=== PATIENT | male | born 1980 | race Caucasian/White ===

== ENCOUNTER 2017-12-14 09:37 | Emergency (ER) | payer OTHER ==
[2017-12-14] MEDS ORDERED: HYOSCYAMINE SULFATE 0.125 MG TAB PO ONE (09:49)
[2017-12-14] MEDS ORDERED: MAG HYDROX/AL HYDROX/SIMETH 30 ML UDCUP PO ONE (09:49)
[2017-12-14] MEDS ORDERED: LIDOCAINE 2% VISCOUS 15 ML UDCUP PO ONE (09:49)
[2017-12-14 09:53] VITALS: BP 132/80; PULSE 95; RESP 18; TEMP 98.4; O2SAT 94
--- NOTE | 2017-12-14 09:54 | EDPHY ---
H & P Time Seen by Provider: 12/14/17 09:44 HPI/ROS: CHIEF COMPLAINT: "I feel like there is a fish bone in my esophagus " HISTORY OF PRESENT ILLNESS: 37-year-old male with prior history of esophageal constriction, complaining of a sensation of a fishbone stuck in his the esophagus for the past 3 days after eating salmon. Reproducible pain with swallowing. No vomiting. No melena or hematochezia. No dyspnea. REVIEW OF SYSTEMS: A ten point review of systems was performed and is negative with the exception of the items mentioned in the HPI PAST MEDICAL & SURGICAL HISTORY: Prior history of esophageal balloon dilatation SOCIAL HISTORY: Nonsmoker PHYSICAL EXAM (Prior to examination, patient consented to physical exam, hands were washed and my usual and customary physical exam procedures followed) 1) GENERAL: Well-developed, well-nourished, alert and oriented. Appears to be in no acute distress. 2) HEAD: Normocephalic, atraumatic 3) HEENT: Pupils equal, round, reactive to light bilaterally. Sclera anicteric. Nasopharynx, oropharynx, clear, no lesions. No posterior oropharyngeal irritation 4) NECK: Full range of motion, no meningeal signs. 5) LUNGS: Clear auscultation bilaterally, no wheezes, no rhonchi, no retractions. No crepitus 6) HEART: Regular rate and rhythm, no murmur, no heave, no gallop. 7) ABDOMEN: No guarding, no rebound, no focal tenderness, negative McBurney's, negative Thakkar's, negative Rovsing's, negative peritoneal sign, 8) MUSCULOSKELETAL: Moving all extremities, no focal areas of tenderness, no obvious trauma. No peripheral edema or discoloration. 9) BACK: No visual or palpable abnormality. 10) SKIN: No rash, no petechiae. 11) Psychiatric: Patient is oriented X 3, there is no agitation. DIFFERENTIAL DIAGNOSIS: In no particular order including but not limited to esophageal abrasion, esophageal foreign body, esophageal reflux Smoking Status: Never smoked Constitutional: Initial Vital Signs Temperature (C) 36.9 C 12/14/17 09:40 Heart Rate 95 12/14/17 09:40 Respiratory Rate 18 12/14/17 09:40 Blood Pressure 132/80 H 12/14/17 09:40 O2 Sat (%) 94 12/14/17 09:40 O2 Delivery Mode Room Air Allergies/Adverse Reactions: No Known Allergies Allergy (Verified 12/14/17 09:39) Home Medications: Medication Instructions Recorded Loratadine [Claritin] 10/24/15 Proventil 12/14/17 Qvar 12/14/17 MDM/Departure - MDM Medications Given: Discontinued Medications Al Hydroxide/Mg Hydroxide (Maalox Susp) 30 ml PO ONCE ONE Stop: 12/14/17 09:50 Last Admin: 12/14/17 09:58 Dose: 30 ml Hyoscyamine Sulfate (Levsin, Hyomax-Sl) 0.25 mg PO ONCE ONE Stop: 12/14/17 09:50 Last Admin: 12/14/17 09:58 Dose: 0.25 mg Lidocaine (Lidocaine 2% Viscous) 15 ml PO ONCE ONE Stop: 12/14/17 09:50 Last Admin: 12/14/17 09:58 Dose: 15 ml ED Course/Re-evaluation: 9:53 a.m.: Care of patient under supervision of primary supervising physician Dr Andrew Boyd whom I discussed case 10:14 a.m.: Re-evaluation, given GI cocktail, feeling improvement after GI cocktail. He is swallowing his secretions. Pain is controlled. We discussed possibility of esophageal abrasion without foreign body. Today is Saturday. I do not think that emergent GI consultation or endoscopic evaluation is currently indicated. However, I have recommend that on Saturday he contact his cash clerk at [facility] to be re-evaluated next week. He has also been given the name of on-call gastroenterology. In the meantime should he develop new or worsening symptoms, dyspnea, or any other symptoms to return to ER immediately for re-evaluation. He feels comfortable with this plan. Usual and customary discharge precautions and instructions provided. - Depart Disposition: Home, Routine, Self-Care Clinical Impression: Esophageal foreign body Qualifiers: Encounter type: initial encounter Qualified Code(s): T18.108A - Unspecified foreign body in esophagus causing other injury, initial encounter Condition: Good Instructions: Esophageal Foreign Body (ED) Additional Instructions: Return to the emergency department if you develop shortness of breath, are unable swallow your secretions or any other symptoms that concern you. Referrals: Anjel Pavon MD, FACG [Medical Doctor] - 12/16/17
== END 2017-12-14 10:20 | disposition home or self-care (01) ==
DX: T18.108A Unspecified foreign body in esophagus causing other injury, initial encounter (principal); X58.XXXA Exposure to other specified factors, initial encounter

== ENCOUNTER → 2018-03-29 | Outpatient (CLI) | payer BC, OTHER | LOC: BMCIMAGING 09:25 | PROVIDERS: ATTEND Family Medicine | DX: S93.401A Sprain of unspecified ligament of right ankle, initial encounter (principal) ==